=== PATIENT | female | born 1990 | race Caucasian/White ===

== ENCOUNTER 2020-02-13 16:57 | Emergency (ER) | payer BC ==
[~2020-02-13] VITALS: Ht 157.5 cm; Wt 79.5 kg
[~2020-02-13 16:57] MED LIST: ALBU2.5V8 IH; ALBU2.5V8 INH; CLIN300C9 PO; CLON0.5T PO; DIPH25CA58 PO; ESCITALOPRAM OXA5 MG PO; HYDR-2761 PO; NAPR-514 PO; NITR100C62 PO
[2020-02-13] MEDS ORDERED: MORPHINE SULFATE 4 MG/ML VIAL. IV/SQ PRN (17:45)
[2020-02-13] MEDS ORDERED: ASPIRIN 325 MG TABLET PO ONE (17:45)
[2020-02-13] MEDS ORDERED: LIDO:MAALOX 1:1 20 ML SINGLE DOSE. SWSW ONE (18:00)
[2020-02-13 18:01] LABS: BILIRUBIN,URINE NEGATIVE (NEG); CLARITY,URINE CLEAR; COLOR,URINE YELLOW; NITRITE,URINE NEGATIVE (NEG); PH,URINE 6.5 (<5.0-8.0); PROTEIN,URINE NEGATIVE (NEG-TRACE); UROBILINOGEN,URINE 0.2 mg/dL (0.2 mg/dL)
[2020-02-13] MEDS: NITROGLYCERIN SUBLINGUAL 0.4 MG BOTTLE OF 25. SL PRN ×2 (18:01→18:17)
[2020-02-13 18:02] LABS: BASO # 0.1 x10^3/uL (0.0-0.2); BASO % 1 % (0-3); EOS # 0.2 x10^3/uL (0.0-0.7); EOS % 2 % (0-3); HEMATOCRIT 40.8 % (36.0-47.0); HEMOGLOBIN 13.9 g/dL (12.0-15.5); LYMPH # 2.5 x10^3/uL (1.0-4.8); LYMPH % 37 % (24-48); MEAN CORPUSCULAR HEMOGLOBIN 30 pg (25-35); MEAN CORPUSCULAR HGB CONC 34 g/dL (31-37); MEAN CORPUSCULAR VOLUME 89 fL (79-100); MONO # 0.4 x10^3/uL (0.0-1.1); MONO % 7 % (0-9); NEUT # 3.6 x10^3/uL (1.8-7.7); NEUT % 53 % (31-73); PLATELET COUNT 208 x10^3/uL (140-400); RED BLOOD COUNT 4.59 x10^6/uL (3.50-5.40); RED CELL DISTRIBUTION WIDTH 13.6 % (11.5-14.5); WHITE BLOOD COUNT 6.9 x10^3/uL (4.0-11.0)
[2020-02-13 18:06] LABS: BARBITURATES NEG (NEG); BENZODIAZEPINES NEG (NEG); CANNABINOIDS POS (NEG); COCAINE NEG (NEG); METHADONE NEG (NEG); OPIATES NEG (NEG); PHENCYCLIDINE NEG (NEG)
--- NOTE | 2020-02-13 18:12 | PHYS DOC ---
Past Medical History Past Medical History: Asthma, Hyperthyroid, Seizure Additional Past Medical Histor: hypoglycemia Past Surgical History: Cholecystectomy, , Tubal ligation Additional Past Surgical Histo: PARTIAL THYROIDECTOMY Smoking Status: Current Every Day Smoker Alcohol Use: Occasionally Drug Use: Marijuana General Adult EDM: Chief Complaint: PLEURISY HPI: HPI: Patient is a 29 year old female presents to emergency department stating that while she was at work she started to develop a slow onset of left-sided chest pain that she initially thought was gas because she had GI upset and indigestion all the night before but resolved when she woke up. Patient states she took a Motrin and it did not help all that much noting that her pain started to get worse especially after she had complained to her boss that she wanted to go home because of her chest pain and her boss let another employee go home because they started her menstrual cycle which upset her increase in her chest pain even more to a 8 out of 10 that radiated to her left arm. Patient denied any nausea, vomiting, diarrhea, chest congestion, nasal congestion, denied breaking out in a sweat. Patient states that she is a cigarette smoker, smokes marijuana occasion ally, drinks alcohol occasionally socially. Patient states that she was a former cocaine abuser and has not used cocaine in 2 years, patient states that she has used meth and acid approximately 3 weeks ago and has not used since. Patient states her last menstrual cycle was on 02/03/2020, denies any urinary tract infection type signs and symptoms, denies vaginal discharge, denies STI concerns. Patient states she had a gallbladder out 6 years ago, had a partial thyroidectomy 3 years ago. Patient denies any skin rashes. Patient denies any other physical ailments or physical concerns. Review of Systems: Review of Systems: 14 body systems of review of systems have been reviewed. See HPI for pertinent positives and negative responses, otherwise all other systems are negative, nonpertinent or noncontributory. Heart Score: Risk Factors: Risk Factors: DM, Current or recent (<one month) smoker, HTN, HLP, family history of CAD, obesity. Risk Scores: Score 0 - 3: 2.5% MACE over next 6 weeks - Discharge Home Score 4 - 6: 20.3% MACE over next 6 weeks - Admit for Clinical Observation Score 7 - 10: 72.7% MACE over next 6 weeks - Early Invasive Strategies Current Medications: Current Medications Medications (Trade) Dose Ordered Sig/Rahat Start Time Stop Time Status Last Admin Dose Admin Aspirin (Chasity Aspirin) 325 mg 1X ONCE 02/13/20 17:45 02/13/20 17:46 DC 02/13/20 17:59 325 MG Morphine Sulfate (Morphine Sulfate) 4 mg PRN Q15MIN PRN 02/13/20 17:45 02/13/20 17:59 DC Multi-Ingredient Mouthwash/Gargle (Gi Cocktail) 20 ml 1X ONCE 02/13/20 18:00 02/13/20 18:01 DC Nitroglycerin (Nitrostat) 0.4 mg PRN Q5MIN PRN 02/13/20 17:45 02/14/20 17:44 02/13/20 18:01 0.4 MG Allergies: Allergies: Allergies Coded Allergies Type Severity Reaction Last Updated Verified Sulfa (Sulfonamide Antibiotics) Allergy Unknown 04/06/13 Yes Physical Exam: PE: Constitutional: Well developed, well nourished, no acute distress, non-toxic appearance. HENT: Normocephalic, atraumatic, bilateral external ears normal, oropharynx moist, no oral exudates, nose normal. Eyes: PERRLA, EOMI, conjunctiva normal, no discharge. Neck: Normal range of motion, no tenderness, supple, no stridor. Cardiovascular:Heart rate regular rhythm, no murmur, heart sounds S1-S2 Lungs & Thorax: Bilateral breath sounds clear to auscultation Abdomen: Bowel sounds normal, soft, no tenderness, no masses, no pulsatile masses. Skin: Warm, dry, no erythema, no rash. Back: No tenderness, no CVA tenderness. Extremities: No tenderness, no cyanosis, no clubbing, ROM intact, no edema. Neurologic: Alert and oriented X 3, normal motor function, normal sensory function, no focal deficits noted. Psychologic: Affect normal, judgement normal, mood normal. Musculoskeletal: Patient left-sided pectoral muscle reproducible pain to palpation, and movement of left upper extremity, reproducible to deep inspiration and expiration. Current Patient Data: Labs: Laboratory Tests Test 02/13/20 17:30 02/13/20 17:46 02/13/20 17:52 02/13/20 18:13 Urine Collection Type Unknown Urine Color Yellow Urine Clarity Clear Urine pH 6.5 Urine Specific [place] 1.020 Urine Protein Negative mg/dL Urine Glucose (UA) Negative mg/dL Urine Ketones (Stick) Negative mg/dL Urine Blood Negative Urine Nitrite Negative Urine Bilirubin Negative Urine Urobilinogen Dipstick 0.2 mg/dL Urine Leukocyte Esterase Moderate Urine RBC 0 /HPF Urine WBC 5-10 /HPF Urine Squamous Epithelial Cells Few /LPF Urine Bacteria Few /HPF Urine Opiates Screen Neg Urine Methadone Screen Neg Urine Barbiturates Neg Urine Phencyclidine Screen Neg Urine Amphetamine/Methamphetamine Neg Urine Benzodiazepines Screen Neg Urine Cocaine Screen Neg Urine Cannabinoids Screen Pos Urine Ethyl Alcohol Neg White Blood Count 6.9 x10^3/uL Red Blood Count 4.59 x10^6/uL Hemoglobin 13.9 g/dL Hematocrit 40.8 % Mean Corpuscular Volume 89 fL Mean Corpuscular Hemoglobin 30 pg Mean Corpuscular Hemoglobin Concent 34 g/dL Red Cell Distribution Width 13.6 % Platelet Count 208 x10^3/uL Neutrophils (%) (Auto) 53 % Lymphocytes (%) (Auto) 37 % Monocytes (%) (Auto) 7 % Eosinophils (%) (Auto) 2 % Basophils (%) (Auto) 1 % Neutrophils # (Auto) 3.6 x10^3/uL Lymphocytes # (Auto) 2.5 x10^3/uL Monocytes # (Auto) 0.4 x10^3/uL Eosinophils # (Auto) 0.2 x10^3/uL Basophils # (Auto) 0.1 x10^3/uL Bedside Urine HCG, Qualitative Hcg negative D-Dimer (Mary [place]) 0.32 ug/mlFEU Sodium Level 140 mmol/L Potassium Level 3.5 mmol/L Chloride Level 105 mmol/L Carbon Dioxide Level 28 mmol/L Anion Gap 7 Blood Urea Nitrogen 7 mg/dL Creatinine 0.7 mg/dL Estimated GFR (Cockcroft-Gault) 99.6 BUN/Creatinine Ratio 10 Glucose Level 83 mg/dL Calcium Level 8.7 mg/dL Magnesium Level 2.0 mg/dL Total Bilirubin 0.4 mg/dL Aspartate Amino Transf (AST/SGOT) 13 U/L Alanine Aminotransferase (ALT/SGPT) 18 U/L Alkaline Phosphatase 37 U/L Troponin I Quantitative < 0.017 ng/mL PW-Gsy-B-Type Natriuretic Peptide 217 pg/mL Total Protein 6.2 g/dL Albumin 3.4 g/dL Albumin/Globulin Ratio 1.2 Lipase 85 U/L Thyroid Stimulating Hormone (TSH) 1.582 uIU/mL Current Medications Medications (Trade) Dose Ordered Sig/Rahat Route PRN Reason Start Time Stop Time Status Last Admin Dose Admin Aspirin (Chasity Aspirin) 325 mg 1X ONCE PO 02/13/20 17:45 02/13/20 17:46 DC 02/13/20 17:59 Nitroglycerin (Nitrostat) 0.4 mg PRN Q5MIN PRN SL CP RATING > 102/13/20 17:45 02/14/20 17:44 02/13/20 18:17 Morphine Sulfate (Morphine Sulfate) 4 mg PRN Q15MIN PRN IV/SQ PAIN GREATER THAN 04/1802/13/20 17:45 02/13/20 17:59 DC Multi-Ingredient Mouthwash/Gargle (Gi Cocktail) 20 ml 1X ONCE SWSW 02/13/20 18:00 02/13/20 18:01 DC 02/13/20 18:20 Ketorolac Tromethamine (Toradol 30mg Vial) 30 mg 1X ONCE IVP 02/13/20 19:45 02/13/20 19:46 DC Laboratory Tests Test 02/13/20 17:46 02/13/20 17:52 White Blood Count 6.9 x10^3/uL (4.0-11.0) Red Blood Count 4.59 x10^6/uL (3.50-5.40) Hemoglobin 13.9 g/dL (12.0-15.5) Hematocrit 40.8 % (36.0-47.0) Mean Corpuscular Volume 89 fL (79-100) Mean Corpuscular Hemoglobin 30 pg (25-35) Mean Corpuscular Hemoglobin Concent 34 g/dL (31-37) Red Cell Distribution Width 13.6 % (11.5-14.5) Platelet Count 208 x10^3/uL (140-400) Neutrophils (%) (Auto) 53 % (31-73) Lymphocytes (%) (Auto) 37 % (24-48) Monocytes (%) (Auto) 7 % (0-9) Eosinophils (%) (Auto) 2 % (0-3) Basophils (%) (Auto) 1 % (0-3) Neutrophils # (Auto) 3.6 x10^3/uL (1.8-7.7) Lymphocytes # (Auto) 2.5 x10^3/uL (1.0-4.8) Monocytes # (Auto) 0.4 x10^3/uL (0.0-1.1) Eosinophils # (Auto) 0.2 x10^3/uL (0.0-0.7) Basophils # (Auto) 0.1 x10^3/uL (0.0-0.2) POC Urine HCG, Qualitative Hcg negative (Negative) Laboratory Tests 02/13/20 17:46 Vital Signs: Vital Signs Date Time Temp Pulse Resp B/P (MAP) Pulse Ox O2 Delivery O2 Flow Rate FiO2 02/13/20 18:01 53 111/57 EKG: EKG: EKG performed at 1726 by ED nursing staff shows a sinus bradycardia at a heart rate of 50 bpm without ectopy, RI interval 0.118, QTc interval 0.407, no acute STEMI, no ACS, no acute ischemia noted, EKG interpreted by ED attending physician Dr. Park. Radiology/Procedures: Radiology/Procedures: SEX: F EXAM STATUS: REG ER ORD. PHYSICIAN: SANAM HELMS APRN REASON: left sided chest pain PROCEDURE: PORTABLE CHEST 1V EXAMINATION: XR CHEST 1V CLINICAL HISTORY: Left-sided chest pain EXAM DATE/TIME: 02/13/2020 5:54 PM COMPARISON: 09/06/2018 FINDINGS: Lines, Tubes, and Devices: None. Cardiomediastinal Silhouette: Within normal limits. Lungs and Pleura: No evidence of focal airspace consolidation or pleural effusion. Pulmonary vasculature unremarkable. Bones and Soft Tissues: No acute osseous abnormality. IMPRESSION: No evidence of acute cardiopulmonary abnormality or significant interval change. Electronically signed by: Alf Bradley DO (02/13/2020 6:20 PM) [facility] DICTATED and SIGNED BY: ALF BRADLEY DO DATE: 02/13/20 [id number] 0 Course & Med Decision Making: Course & Med Decision Making Pertinent Labs and Imaging studies reviewed. (See chart for details) 29-year-old female presents emergency department complaint of chest pain, physical exam was not concerning for cardiac or pulmonary presentation, physical exam was consistent with chest wall pain, related to patient's past history of narcotic abuse, a ER work-up for cardiopulmonary abnormalities were initiated. Patient's chest x-ray was read negative by house radiologist rotation, EKG was not concerning for acute cardiac process, labs were equivocal. Discussed case with ED attending physician Dr. Rodas who agreed patient is safe to go home. Discussed findings with patient, patient gave verbal understanding discharge home instructions, requested work excuse for tomorrow, patient gave verbal understanding of return to ER precautions and concerns, had no further questions or concerns, discharged home without incident. Patient was started on a prescription for ibuprofen 600 mg p.o. as needed 3 times daily. Impression: #1 chest wall pain Dragon Disclaimer: Dragon Disclaimer: This electronic medical record was generated, in whole or in part, using a voice recognition dictation system. Departure Departure Impression: Primary Impression: Chest wall pain Disposition: 01 DC HOME SELF CARE/HOMELESS Condition: GOOD Referrals: NO PCP (PCP) Patient Instructions: Chest Wall Pain Additional Instructions: Please take prescribed medications as directed, return to the emergency department for worsening symptoms or other concerns, follow-up with your doctor soon for further lab studies and evaluation of your physical concerns. EMERGENCY DEPARTMENT GENERAL DISCHARGE INSTRUCTIONS Thank you for coming to [facility] Emergency Department (ED) today and trusting us with you care. We trust that you had a positive experience in our Emergency Department. If you wish to speak to the department management, you may call the Director at [phone]. YOUR FOLLOW UP INSTRUCTIONS ARE FOLLOWS: 1. Do you have a private Doctor? If you do not have a private doctor, please ask for a resource list of physicians or clinics that may be able to assist you with follow up care. 2. The Emergency Physicain has interpreted your x-rays. The X-Ray specialist will also review them. If there is a change in the findings, you will be notified in 48 hours when at all possible. 3. A lab test or culture has been done, your results will be reviewed and you will be notified if you need a change in treatment. ADDITIONAL INSTRUCTIONS AND INFORMATION: 1. Your care today has been supervised by a physician who is specially trained in emergency care. Many problems require more than one evaluation for a complete diagnosis and treatment. We recommend that you schedule your follow up appointment as recommended to ensure complete treatment of you illness or injury. If you are unable to obtain follow up care and continue to have a problem, or if your condition worsens, we recommend that you return to the ED. 2. We are not able to safely determine your condition over the phone nor are we able to give sound medical advice over the phone. For these safety reasons, if you call for medical advice we will ask you to come to the ED for further evaluation. 3. If you have any questions regarding these discharge instructions please call the ED at [phone]. SAFETY INFORMATION: In the interest of safety, wellness, and injury prevention; we encourage you to wear your sealbelt, if you smoke; quite smoking, and we encourage family to use a protective helmet for bicycling and other sporting events that present an increased risk for head injury. IF YOUR SYMPTOMS WORSEN OR NEW SYMPTOMS DEVELOP, OR YOU HAVE CONCERNS ABOUT YOUR CONDITION; OR IF YOUR CONDITION WORSENS WHILE YOU ARE WAITING FOR YOUR FOLLOW UP APPOINTMENT; EITHER CONTACT YOUR PRIMARY CARE DOCTOR, THE PHYSICIAN WHOSE NAME AND NUMBER YOU WERE GIVEN, OR RETURN TO THE ED IMMEDIATELY. Scripts Ibuprofen (IBUPROFEN) 600 Mg Tablet 600 MG PO TID PRN PRN for INFLAMMATION, #20 TAB 0 Refills Prov: KELSY JIMENES APRN 02/13/20 KELSY JIMENES APRN Feb 13, 2020 18:12
[2020-02-13 18:15] LABS: AMPHETAMINE/METHAMPHETAMINE NEG (NEG)
[2020-02-13 18:22] LABS: BACTERIA,URINE FEW /HPF (0-FEW); RBC,URINE 0 /HPF (0-2)
--- NOTE | 2020-02-13 18:23 | RAD ---
EXAMINATION: XR CHEST 1V CLINICAL HISTORY: Left-sided chest pain EXAM DATE/TIME: 02/13/2020 5:54 PM COMPARISON: 09/06/2018 FINDINGS: Lines, Tubes, and Devices: None. Cardiomediastinal Silhouette: Within normal limits. Lungs and Pleura: No evidence of focal airspace consolidation or pleural effusion. Pulmonary vasculat ure unremarkable. Bones and Soft Tissues: No acute osseous abnormality. IMPRESSION: No evidence of acute cardiopulmonary abnormality or significant interval change. Electronically signed by: Alf Andre DO (02/13/2020 6:20 PM) [facility]
[2020-02-13 18:49] LABS: ALBUMIN 3.4 g/dL (3.4-5.0); ALBUMIN/GLOBULIN RATIO 1.2 (1.0-1.7); CALCIUM 8.7 mg/dL (8.5-10.1); CREATININE 0.7 mg/dL (0.6-1.0); GFR 99.6; POTASSIUM 3.5 mmol/L (3.5-5.1); TOTAL BILIRUBIN 0.4 mg/dL (0.2-1.0); TOTAL PROTEIN 6.2 g/dL (6.4-8.2)
[2020-02-13 19:18] VITALS: BP 107/70
[2020-02-13] MEDS ORDERED: IBUP-1007 PO (19:38)
[2020-02-13] MEDS ORDERED: KETOROLAC 30 MG/ML VIAL. IVP ONE (19:45)
--- NOTE | 2020-02-16 01:45 | EKG ---
[facility] [address] [place] [address] Test Date: 2020-02-13 Test Time: 17:26:10 Pat Name: ROSITA SMITH Department: Room: Gender: F Photographer Portrait: : 1990 Requested By: SANAM HELMS Order Number: [id number] Reading MD: Measurements Intervals [place] Rate: 50 P: 41 [place]: 118 QRS: -9 QRSD: 92 T: 22 QT: 444 QTc: 407 Interpretive Statements SINUS RHYTHM LEFTWARD AXIS NO SPECIFIC ECG ABNORMALITIES RI6.02 No previous ECG available for comparison
== END 2020-02-13 19:58 | disposition home or self-care (01) ==
LOC: ER 16:57
DX: R07.89 Other chest pain (principal); J45.909 Unspecified asthma, uncomplicated; E03.9 Hypothyroidism, unspecified; F17.200 Nicotine dependence, unspecified, uncomplicated; F12.90 Cannabis use, unspecified, uncomplicated; Z90.49 Acquired absence of other specified parts of digestive tract; Z98.51 Tubal ligation status; Z98.890 Other specified postprocedural states; Z90.89 Acquired absence of other organs; Z88.2 Allergy status to sulfonamides
CPT/HCPCS: 36415; 71045; 80053; 80307; 81001; 81025; 83690; 83735; 83880; 84443; 84484; 85025; 85379; 93005; 96374; 99285; J1885